=== PATIENT | male | born 1960 | race Caucasian/White ===

== ENCOUNTER 2019-08-07 08:01 | Observation (INO) ==
[~2019-08-07 08:01] MED LIST: Acetaminophen IV 1,000 MG/100 ML INFUS..BTL IVPB ONE; Famotidine 20 MG/2 ML VIAL IVP ONE; Ringers Solution, Lactated 1,000 ML IVC SCH
[2019-08-07] MEDS ORDERED: CeFAZolin Syr 3,000MG/30 ML 3,000 MG/30 ML SYRINGE IVPB ONE (08:23)
[2019-08-07] MEDS ORDERED: Metoprolol XL (24 HR) Succ 50 MG TAB.ER.24H PO STA (09:00)
[2019-08-07] MEDS ORDERED: Dexamethasone 4 MG/ML VIAL ONE (09:28)
[2019-08-07] MEDS ORDERED: *HR* Propofol 200 MG/20 ML VIAL IVP ONE (09:28)
[2019-08-07] MEDS ORDERED: Ondansetron 4 MG/2 ML VIAL ONE (09:28)
[2019-08-07] MEDS ORDERED: Ethanol\\Acetic Acid\\Na Ace\\Ben 1,000 ML IRRIG.SOLN IR ONE (10:03)
[2019-08-07] MEDS ORDERED: Vancomycin 1,000 MG VIAL ONE (10:04)
[2019-08-07] MEDS ORDERED: *HR* Midazolam HCl 2 MG/2 ML VIAL ONE (10:16)
[2019-08-07] MEDS ORDERED: *HR* FentaNYL (PF) 100 MCG/2 ML VIAL ONE (10:16)
[2019-08-07] MEDS ORDERED: *HR* OxyCODONE Immed Rel 5 MG TABLET PO PRN (11:04)
[2019-08-07 13:14] LABS: Hematocrit 46.2 % (37.5-50.1); Hemoglobin 15.3 g/dL (12.9-16.9)
[2019-08-07] MEDS ORDERED: NON-FORMULARY MEDICATION 1 EACH EACH (Tadalafil [Cialis] 20 MG) PO PRN (14:01)
[2019-08-07] MEDS ORDERED: *HR* Dextrose 50 % in Water (Vial) 50 ML VIAL IVP PRN (14:01)
[2019-08-07] MEDS ORDERED: Sennosides 8.6 MG TABLET PO PRN (14:01)
[2019-08-07] MEDS ORDERED: Ondansetron 4 MG/2 ML VIAL IVP PRN (14:01)
[2019-08-07] MEDS ORDERED: *HR* Promethazine 25 MG/ML VIAL IVP PRN (14:01)
[2019-08-07] MEDS ORDERED: Naloxone 0.4 MG/ML INJ IVP PRN (14:01)
[2019-08-07] MEDS ORDERED: D5% in Water 1,000 ML IVC PRN (14:01)
[2019-08-07] MEDS ORDERED: Dextrose Gel 15 GM/37.5 ML TUBE PO PRN ×2 (14:01)
[2019-08-07] MEDS ORDERED: MOM Conc 10 ML UD.LIQ PO PRN (14:01)
[2019-08-07] MEDS: HYDROcodone BIT/Homatropine 5 MG TABLET PO PRN ×3 (14:15→22:49)
[2019-08-07] MEDS: Ringers Solution, Lactated 1,000 ML IVC SCH (15:41)
[2019-08-07] MEDS ORDERED: *HR* PHENYLEPHRINE 1,000 MCG/10 ML SYRINGE IVP ONE (16:32)
[2019-08-07] MEDS: *HR* OxyCODONE Immed Rel 5 MG TABLET PO PRN ×2 (16:52→20:56)
[2019-08-07] MEDS: Insulin LISPRO 300 UNITS/3 ML VIAL SQ SCH ×2 (16:55→20:59)
[2019-08-07] MEDS: ceFAZolin 3,000 MG in 0.9 % Sodium Chloride 100 ML IVPB SCH ×2 (17:01→22:49)
[2019-08-07] MEDS: Ascorbic Acid 500 MG TABLET PO SCH (17:02)
[2019-08-07] MEDS: *HR* LORazepam 1 MG TABLET PO PRN (20:56)
[2019-08-08] MEDS: *HR* OxyCODONE Immed Rel 5 MG TABLET PO PRN ×6 (00:53→22:30)
[2019-08-08] MEDS: Ringers Solution, Lactated 1,000 ML IVC SCH (02:39)
[2019-08-08 02:42] LABS: Basophils % 0.2 %; Eosinophils % 0.1 %; Hematocrit 42.2 % (37.5-50.1); Hemoglobin 14.5 g/dL (12.9-16.9); Immature Granulocytes % 0.4 % (0-4); Lymphocytes # 1.5 K/mcL (0.6-4.6); Lymphocytes % 11.9 %; Mean Corpuscular HGB Conc 34.4 g/dL (31.6-35.5); Mean Corpuscular Hemoglobin 31.3 pg (28.0-33.3); Mean Corpuscular Volume 90.9 fL (83.0-100.0); Mean Platelet Volume 8.7 fL (9.4-12.4); Monocytes # 1.2 K/mcL (0.0-1.3); Monocytes % 9.5 %; Neutrophils # 10.1 K/mcL (1.6-8.9); Platelet Count 203 K/mcL (140-400); Red Blood Count 4.64 M/mcL (4.19-5.50); Red Cell Distribution Width 12.6 % (11.5-14.5); Segmented Neutrophils % 77.9 %; White Blood Count 12.9 K/mcL (4.3-11.1)
[2019-08-08] MEDS: HYDROcodone BIT/Homatropine 5 MG TABLET PO PRN ×5 (02:46→20:25)
[2019-08-08 03:03] LABS: BUN/Creatinine Ratio 20 (6-26); Blood Urea Nitrogen 24 mg/dL (6-20); Calcium 8.7 mg/dL (8.6-10.3); Carbon Dioxide 24 mEq/L (23-29); Chloride 104 mEq/L (98-107); Glucose 149 mg/dL (70-105); Osmolality,Calculated 289 (280-300); Potassium 4.1 mEq/L (3.5-5.1); Sodium 136 mEq/L (136-145); eGFR For African Americans > 60 (> 60); eGFR For Non-African Americans > 60 (> 60)
[2019-08-08] MEDS: Metoprolol XL (24 HR) Succ 25 MG TAB.ER.24H PO SCH (10:04)
[2019-08-08] MEDS: Ascorbic Acid 500 MG TABLET PO SCH ×2 (10:05→16:14)
[2019-08-08] MEDS: hydroCHLOROthiazide 25 MG TABLET PO SCH (10:05)
[2019-08-08] MEDS: Multivit/Ca/Min/Fe/FA 1 TAB TABLET PO SCH (10:05)
[2019-08-08] MEDS: Anastrozole 1 MG TABLET PO SCH (10:05)
[2019-08-08] MEDS: Insulin LISPRO 300 UNITS/3 ML VIAL SQ SCH ×3 (10:09→16:19)
[2019-08-08] MEDS: Aspirin Enteric Coated 81 MG Tablet PO SCH (12:54)
[2019-08-09] MEDS: Insulin LISPRO 300 UNITS/3 ML VIAL SQ SCH ×5 (00:17→21:21)
[2019-08-09] MEDS: HYDROcodone BIT/Homatropine 5 MG TABLET PO PRN ×6 (00:43→22:05)
[2019-08-09 02:13] LABS: Basophils # 0.1 K/mcL (0.0-0.2); Basophils % 0.5 %; Eosinophils # 0.4 K/mcL (0.0-0.6); Eosinophils % 3.2 %; Hematocrit 42.2 % (37.5-50.1); Hemoglobin 14.4 g/dL (12.9-16.9); Immature Granulocytes % 0.5 % (0-4); Lymphocytes # 3.6 K/mcL (0.6-4.6); Lymphocytes % 27.9 %; Mean Corpuscular HGB Conc 34.1 g/dL (31.6-35.5); Mean Corpuscular Hemoglobin 30.7 pg (28.0-33.3); Mean Platelet Volume 8.9 fL (9.4-12.4); Monocytes % 7.7 %; Neutrophils # 7.7 K/mcL (1.6-8.9); Platelet Count 201 K/mcL (140-400); Red Blood Count 4.69 M/mcL (4.19-5.50); Red Cell Distribution Width 12.7 % (11.5-14.5); Segmented Neutrophils % 60.2 %; White Blood Count 12.8 K/mcL (4.3-11.1)
[2019-08-09 02:30] LABS: BUN/Creatinine Ratio 20 (6-26); Blood Urea Nitrogen 27 mg/dL (6-20); Calcium 9.1 mg/dL (8.6-10.3); Carbon Dioxide 27 mEq/L (23-29); Chloride 102 mEq/L (98-107); Glucose 123 mg/dL (70-105); Osmolality,Calculated 288 (280-300); Potassium 3.6 mEq/L (3.5-5.1); Sodium 136 mEq/L (136-145); eGFR For African Americans > 60 (> 60); eGFR For Non-African Americans 53 (> 60)
[2019-08-09] MEDS: *HR* OxyCODONE Immed Rel 5 MG TABLET PO PRN ×5 (02:36→19:17)
[2019-08-09] MEDS: Ascorbic Acid 500 MG TABLET PO SCH ×2 (09:19→17:12)
[2019-08-09] MEDS: Metoprolol XL (24 HR) Succ 25 MG TAB.ER.24H PO SCH (09:19)
[2019-08-09] MEDS: Multivit/Ca/Min/Fe/FA 1 TAB TABLET PO SCH (09:19)
[2019-08-09] MEDS: hydroCHLOROthiazide 25 MG TABLET PO SCH (09:19)
[2019-08-09] MEDS: Anastrozole 1 MG TABLET PO SCH (09:20)
[2019-08-09] MEDS: Aspirin Enteric Coated 81 MG Tablet PO SCH (09:20)
[2019-08-09] MEDS: Ringers Solution, Lactated 1,000 ML IVC SCH ×2 (19:23→19:24)
[2019-08-09] MEDS: *HR* LORazepam 1 MG TABLET PO PRN (22:05)
[2019-08-10] MEDS: *HR* OxyCODONE Immed Rel 5 MG TABLET PO PRN ×6 (00:44→23:04)
[2019-08-10] MEDS: HYDROcodone BIT/Homatropine 5 MG TABLET PO PRN ×5 (02:32→20:56)
[2019-08-10] MEDS: Metoprolol XL (24 HR) Succ 25 MG TAB.ER.24H PO SCH (08:52)
[2019-08-10] MEDS: Ascorbic Acid 500 MG TABLET PO SCH ×2 (08:52→17:29)
[2019-08-10] MEDS: Multivit/Ca/Min/Fe/FA 1 TAB TABLET PO SCH (08:52)
[2019-08-10] MEDS: Anastrozole 1 MG TABLET PO SCH (08:53)
[2019-08-10] MEDS: Aspirin Enteric Coated 81 MG Tablet PO SCH (08:53)
[2019-08-10] MEDS: hydroCHLOROthiazide 25 MG TABLET PO SCH (08:53)
[2019-08-10] MEDS: Insulin LISPRO 300 UNITS/3 ML VIAL SQ SCH ×5 (08:54→20:57)
[2019-08-10 09:05] LABS: Hematocrit 41.7 % (37.5-50.1); Hemoglobin 14.5 g/dL (12.9-16.9)
[2019-08-10 09:23] LABS: BUN/Creatinine Ratio 17 (6-26); Blood Urea Nitrogen 19 mg/dL (6-20); Calcium 9.4 mg/dL (8.6-10.3); Carbon Dioxide 32 mEq/L (23-29); Chloride 97 mEq/L (98-107); Glucose 130 mg/dL (70-105); Osmolality,Calculated 286 (280-300); Potassium 3.7 mEq/L (3.5-5.1); Sodium 136 mEq/L (136-145); eGFR For African Americans > 60 (> 60); eGFR For Non-African Americans > 60 (> 60)
[2019-08-10] MEDS: Ringers Solution, Lactated 1,000 ML IVC SCH (16:42)
[2019-08-10] MEDS: Cholecalciferol (D-3) 1,000 UNIT (25MCG) TABLET PO SCH (16:47)
[2019-08-10] MEDS: Vancomycin 2,000 MG/520 ML IV.SOLN IVPB SCH (23:16)
[2019-08-11] MEDS: HYDROcodone BIT/Homatropine 5 MG TABLET PO PRN ×6 (01:47→23:58)
[2019-08-11] MEDS: *HR* OxyCODONE Immed Rel 5 MG TABLET PO PRN ×5 (05:27→22:51)
[2019-08-11] MEDS ORDERED: Vancomycin (wt based) 1,000 MG VIAL IVPB SCH (06:00)
[2019-08-11] MEDS: Insulin LISPRO 300 UNITS/3 ML VIAL SQ SCH ×4 (07:32→21:05)
[2019-08-11] MEDS: hydroCHLOROthiazide 25 MG TABLET PO SCH (07:36)
[2019-08-11] MEDS: Multivit/Ca/Min/Fe/FA 1 TAB TABLET PO SCH (07:36)
[2019-08-11] MEDS: Aspirin Enteric Coated 81 MG Tablet PO SCH (07:36)
[2019-08-11] MEDS: Ascorbic Acid 500 MG TABLET PO SCH ×2 (07:36→16:45)
[2019-08-11] MEDS: Metoprolol XL (24 HR) Succ 25 MG TAB.ER.24H PO SCH (07:37)
[2019-08-11] MEDS: Cholecalciferol (D-3) 1,000 UNIT (25MCG) TABLET PO SCH (07:37)
[2019-08-11] MEDS: Anastrozole 1 MG TABLET PO SCH (07:41)
[2019-08-11 09:15] LABS: Hematocrit 39.7 % (37.5-50.1); Hemoglobin 13.8 g/dL (12.9-16.9); Mean Corpuscular HGB Conc 34.8 g/dL (31.6-35.5); Mean Corpuscular Hemoglobin 31.2 pg (28.0-33.3); Mean Corpuscular Volume 89.8 fL (83.0-100.0); Mean Platelet Volume 8.9 fL (9.4-12.4); Platelet Count 219 K/mcL (140-400); Red Blood Count 4.42 M/mcL (4.19-5.50); Red Cell Distribution Width 12.6 % (11.5-14.5); White Blood Count 9.4 K/mcL (4.3-11.1)
[2019-08-11 09:39] LABS: BUN/Creatinine Ratio 20 (6-26); Blood Urea Nitrogen 22 mg/dL (6-20); Calcium 9.2 mg/dL (8.6-10.3); Carbon Dioxide 31 mEq/L (23-29); Chloride 97 mEq/L (98-107); Glucose 150 mg/dL (70-105); Osmolality,Calculated 286 (280-300); Potassium 3.5 mEq/L (3.5-5.1); Sodium 135 mEq/L (136-145); eGFR For African Americans > 60 (> 60); eGFR For Non-African Americans > 60 (> 60)
[2019-08-11] MEDS: Vancomycin 2,000 MG/520 ML IV.SOLN IVPB SCH (11:04)
[2019-08-11] MEDS: Doxycycline 100 MG CAPSULE PO SCH (19:50)
[2019-08-11] MEDS ORDERED: Vancomycin 1,750 MG/517.5 ML IV.SOLN IVPB SCH (23:00)
[2019-08-12] MEDS: *HR* OxyCODONE Immed Rel 5 MG TABLET PO PRN ×6 (02:42→23:43)
[2019-08-12] MEDS: HYDROcodone BIT/Homatropine 5 MG TABLET PO PRN ×5 (04:20→21:12)
[2019-08-12] MEDS: Doxycycline 100 MG CAPSULE PO SCH (08:34)
[2019-08-12] MEDS: Cholecalciferol (D-3) 1,000 UNIT (25MCG) TABLET PO SCH (08:35)
[2019-08-12] MEDS: hydroCHLOROthiazide 25 MG TABLET PO SCH (08:35)
[2019-08-12] MEDS: Metoprolol XL (24 HR) Succ 25 MG TAB.ER.24H PO SCH (08:36)
[2019-08-12] MEDS: Ascorbic Acid 500 MG TABLET PO SCH ×2 (08:36→17:08)
[2019-08-12] MEDS: Aspirin Enteric Coated 81 MG Tablet PO SCH (08:36)
[2019-08-12] MEDS: Multivit/Ca/Min/Fe/FA 1 TAB TABLET PO SCH (08:36)
[2019-08-12] MEDS: Anastrozole 1 MG TABLET PO SCH (08:36)
[2019-08-12] MEDS: Insulin LISPRO 300 UNITS/3 ML VIAL SQ SCH ×4 (09:36→22:49)
[2019-08-12] MEDS: Ringers Solution, Lactated 1,000 ML IVC SCH ×2 (22:50→22:51)
[2019-08-13] MEDS: HYDROcodone BIT/Homatropine 5 MG TABLET PO PRN ×5 (01:15→20:21)
[2019-08-13] MEDS: *HR* OxyCODONE Immed Rel 5 MG TABLET PO PRN ×5 (04:20→21:54)
[2019-08-13] MEDS: Insulin LISPRO 300 UNITS/3 ML VIAL SQ SCH ×4 (07:21→21:58)
[2019-08-13] MEDS: Multivit/Ca/Min/Fe/FA 1 TAB TABLET PO SCH (08:35)
[2019-08-13] MEDS: hydroCHLOROthiazide 25 MG TABLET PO SCH (08:35)
[2019-08-13] MEDS: Cholecalciferol (D-3) 1,000 UNIT (25MCG) TABLET PO SCH (08:35)
[2019-08-13] MEDS: Aspirin Enteric Coated 81 MG Tablet PO SCH (08:36)
[2019-08-13] MEDS: Metoprolol XL (24 HR) Succ 25 MG TAB.ER.24H PO SCH (08:36)
[2019-08-13] MEDS: Anastrozole 1 MG TABLET PO SCH (08:36)
[2019-08-13] MEDS: Ascorbic Acid 500 MG TABLET PO SCH ×2 (08:36→16:20)
[2019-08-13] MEDS: Sennosides 8.6 MG TABLET PO SCH (21:54)
[2019-08-14] MEDS: HYDROcodone BIT/Homatropine 5 MG TABLET PO PRN ×6 (00:45→22:44)
[2019-08-14] MEDS: *HR* OxyCODONE Immed Rel 5 MG TABLET PO PRN ×5 (02:22→20:43)
[2019-08-14] MEDS ORDERED: Vancomycin 2,000 MG/520 ML IV.SOLN IVPB ONE (07:08)
[2019-08-14] MEDS: Ringers Solution, Lactated 1,000 ML IVC SCH ×2 (07:56→09:36)
[2019-08-14] MEDS: hydroCHLOROthiazide 25 MG TABLET PO SCH (08:19)
[2019-08-14] MEDS: Cholecalciferol (D-3) 1,000 UNIT (25MCG) TABLET PO SCH (08:19)
[2019-08-14] MEDS: Metoprolol XL (24 HR) Succ 25 MG TAB.ER.24H PO SCH (08:19)
[2019-08-14] MEDS: Ascorbic Acid 500 MG TABLET PO SCH ×2 (08:19→16:26)
[2019-08-14] MEDS: Aspirin Enteric Coated 81 MG Tablet PO SCH (08:19)
[2019-08-14] MEDS: Anastrozole 1 MG TABLET PO SCH (08:19)
[2019-08-14] MEDS: Multivit/Ca/Min/Fe/FA 1 TAB TABLET PO SCH (08:19)
[2019-08-14] MEDS: Insulin LISPRO 300 UNITS/3 ML VIAL SQ SCH ×4 (08:20→20:45)
[2019-08-14 09:17] LABS: BUN/Creatinine Ratio 18 (6-26); Blood Urea Nitrogen 20 mg/dL (6-20); eGFR For African Americans > 60 (> 60); eGFR For Non-African Americans > 60 (> 60)
[2019-08-14] MEDS: Vancomycin 2,000 MG/520 ML IV.SOLN IVPB SCH (18:25)
[2019-08-14] MEDS: Sennosides 8.6 MG TABLET PO SCH (20:43)
[2019-08-15] MEDS: *HR* LORazepam 1 MG TABLET PO PRN (00:57)
[2019-08-15] MEDS: *HR* OxyCODONE Immed Rel 5 MG TABLET PO PRN ×5 (03:28→21:01)
[2019-08-15] MEDS: Vancomycin 2,000 MG/520 ML IV.SOLN IVPB SCH ×2 (06:14→18:30)
[2019-08-15] MEDS: HYDROcodone BIT/Homatropine 5 MG TABLET PO PRN ×5 (06:14→23:27)
[2019-08-15] MEDS: Aspirin Enteric Coated 81 MG Tablet PO SCH (08:23)
[2019-08-15] MEDS: Ascorbic Acid 500 MG TABLET PO SCH ×2 (08:23→16:32)
[2019-08-15] MEDS: Cholecalciferol (D-3) 1,000 UNIT (25MCG) TABLET PO SCH (08:23)
[2019-08-15] MEDS: hydroCHLOROthiazide 25 MG TABLET PO SCH (08:23)
[2019-08-15] MEDS: Metoprolol XL (24 HR) Succ 25 MG TAB.ER.24H PO SCH (08:23)
[2019-08-15] MEDS: Anastrozole 1 MG TABLET PO SCH (08:23)
[2019-08-15] MEDS: Multivit/Ca/Min/Fe/FA 1 TAB TABLET PO SCH (08:24)
[2019-08-15] MEDS: Insulin LISPRO 300 UNITS/3 ML VIAL SQ SCH ×4 (08:33→21:57)
[2019-08-15] MEDS: Ringers Solution, Lactated 1,000 ML IVC SCH (08:41)
[2019-08-15 17:38] LABS: BUN/Creatinine Ratio 18 (6-26); Blood Urea Nitrogen 20 mg/dL (6-20); eGFR For African Americans > 60 (> 60); eGFR For Non-African Americans > 60 (> 60)
[2019-08-15] MEDS ORDERED: Aminoglycoside Consult 1 EACH MC ONE (18:01)
[2019-08-15] MEDS: Sennosides 8.6 MG TABLET PO SCH (21:00)
[2019-08-16] MEDS: *HR* OxyCODONE Immed Rel 5 MG TABLET PO PRN ×4 (01:47→15:00)
[2019-08-16] MEDS: HYDROcodone BIT/Homatropine 5 MG TABLET PO PRN ×4 (03:36→16:45)
[2019-08-16] MEDS: Vancomycin 2,000 MG/520 ML IV.SOLN IVPB SCH (06:16)
[2019-08-16] MEDS: Metoprolol XL (24 HR) Succ 25 MG TAB.ER.24H PO SCH (08:04)
[2019-08-16] MEDS: Aspirin Enteric Coated 81 MG Tablet PO SCH (08:04)
[2019-08-16] MEDS: hydroCHLOROthiazide 25 MG TABLET PO SCH (08:04)
[2019-08-16] MEDS: Multivit/Ca/Min/Fe/FA 1 TAB TABLET PO SCH (08:04)
[2019-08-16] MEDS: Anastrozole 1 MG TABLET PO SCH (08:04)
[2019-08-16] MEDS: Cholecalciferol (D-3) 1,000 UNIT (25MCG) TABLET PO SCH (08:05)
[2019-08-16] MEDS: Ascorbic Acid 500 MG TABLET PO SCH ×2 (08:05→16:45)
[2019-08-16] MEDS: Insulin LISPRO 300 UNITS/3 ML VIAL SQ SCH ×2 (08:41→12:28)
[2019-08-16] MEDS ORDERED: Furosemide 40 MG/4 ML VIAL IVP ONE (10:55)
[2019-08-16 16:46] VITALS: BP 136/74
[2019-08-16] MEDS ORDERED: Doxycycline 100 MG CAPSULE PO ONE (16:55)
== END 2019-08-16 18:02 ==
LOC: SAMDAY 08:01 → 3NENU 08:01
PROVIDERS: ADMIT Orthopaedic Surgery; ATTEND Orthopaedic Surgery